=== PATIENT | female | born 1945 | race Caucasian/White ===

== ENCOUNTER 2018-03-24 13:38 | Emergency (ER) | payer MEDICARE ==
[~2018-03-24] VITALS: Ht 162.6 cm; Wt 85.5 kg
[~2018-03-24 13:38] MED LIST: AMLO10TA2 PO; ASCO10004 PO; ASPI-496 PO; BUSP10TA PO; CALC1CAP7 PO; CALC500T10 PO; DULO30CA2 PO; GARL10002 PO; LECI1200 PO; LEVO137T3 PO; LISI40TA PO; MAGN250T8 PO; METF1000 PO; METO-93 PO; OMEG1CAP23 PO; OXCA300T PO; PANT40TA5 PO; POTA99TA2 PO; PRAV20TA2 PO; QUET100T PO; SPIR50TA2 PO; VITA1CAP PO; ZOLP5TAB6 PO
[2018-03-24 13:40] VITALS: BP 152/75
[2018-03-24] MEDS ORDERED: LIDOCAINE-MPF 1%, 5ML ONE (14:11)
[2018-03-24] MEDS ORDERED: DIPH,PERTUSS(ACELL),TET VAC/PF 0.5 ML IM-VACC ONE ×2 (14:11→14:30)
[2018-03-24] MEDS ORDERED: LIDOCAINE-MPF 1%, 5ML INFIL ONE (14:30)
== END 2018-03-24 14:29 | disposition home or self-care (01) ==
LOC: ED 14:15
DX: S61.213A Laceration without foreign body of left middle finger without damage to nail, initial encounter (principal); E11.9 Type 2 diabetes mellitus without complications; I10 Essential (primary) hypertension; W26.0XXA Contact with knife, initial encounter; Y93.89 Activity, other specified; Y92.009 Unspecified place in unspecified non-institutional (private) residence as the place of occurrence of the external cause; Y99.8 Other external cause status
CPT/HCPCS: 12001; 90471; 90715; 99283

== ENCOUNTER 2020-08-11 16:18 | Inpatient (IN) | payer MEDICARE ==
[~2020-08-11] VITALS: Ht 160 cm; Wt 87.7 kg
[~2020-08-11 16:18] MED LIST changes: -AMLO10TA2 PO; +AMLO10TA8 PO; +ASCO100018 PO; -ASCO10004 PO; +CEFAZOLIN 1,000 MG ONE; +DEXAMETHASONE 4 MG/ML, 1ML ONE; +GLYCOPYRROLATE 0.2MG/1ML, 5ML ONE; +NEOSTIGMINE 1 MG/ML, 10ML ONE; -OXCA300T PO; +OXCA300T19 PO; -PANT40TA5 PO; +PANT40TA6 PO; +PROPOFOL 10 MG/ML, 20ML ONE; +ROCURONIUM 10MG/ML,5ML ONE; -SPIR50TA2 PO; +SPIR50TA4 PO; +SUCCINYLCHOLINE 20 MG/ML, 10ML ONE
[2020-08-11] MEDS ORDERED: DIPH,PERTUSS(ACELL),TET VAC/PF 0.5 ML IM-VACC ONE ×2 (16:30→16:32)
[2020-08-11] MEDS ORDERED: ONDANSETRON 2MG/ML, 2ML IVPush ONE (16:30)
[2020-08-11] MEDS ORDERED: SODIUM CHLORIDE FLUSH 10ML SYR IVF ONE (16:30)
[2020-08-11] MEDS ORDERED: MORPHINE SULFATE 4 MG/ML, 1ML ONE ×2 (16:32→17:26)
[2020-08-11] MEDS ORDERED: ONDANSETRON 2MG/ML, 2ML ONE (16:32)
[2020-08-11] MEDS: MORPHINE SULFATE 4 MG/ML, 1ML IVPush PRN ×2 (16:43→17:32)
--- NOTE | 2020-08-11 16:50 | NUR ---
PT MEDICATED FOR 7/10 PAIN TO LLE, TETANUS GIVEN PER ORDER. XR COMPLETED, CALL LIGHT WITHIN REACH. ED TECHS AT BS TO PLACE SPLINT, DRESSING APPLIED TO WOUND.
[2020-08-11] MEDS ORDERED: CEFAZOLIN PMX 1GM/50ML 50 ML IV ONE (17:00)
[2020-08-11 17:13] LABS: BASOPHILS # (AUTO) 0.01 x10^3/uL (0-0.1); BASOPHILS % (AUTO) 0 % (0-1); EOSINOPHILS # (AUTO) 0.09 x10^3/uL (0-0.4); EOSINOPHILS % (AUTO) 1 % (1-7); LYMPHOCYTES # (AUTO) 0.91 x10^3/uL (1-3.4); LYMPHOCYTES % (AUTO) 10 % (22-44); MD NO; MEAN CORPUSCULAR HGB CONC 32.6 g/dL (32.4-35.8); MEAN PLATELET VOLUME 9.3 fL (7.4-10.4); MONOCYTES # (AUTO) 0.42 x10^3/uL (0.2-0.8); MONOCYTES % (AUTO) 5 % (2-9); NEUTROPHILS # (AUTO) 7.57 x10^3/uL (1.8-6.8); NEUTROPHILS % (AUTO) 84 % (42-75); PLATELET COUNT 177 x10^3/uL (130-400); RED BLOOD COUNT 4.65 x10^6/uL (3.82-5.3); RED CELL DISTRIBUTION WIDTH 14.3 % (9.6-15.2)
[2020-08-11 17:26] LABS: ALBUMIN 3.6 g/dL (3.4-5.0); ANION GAP 7 mmol/L (5-15); CALCIUM 8.9 mg/dL (8.5-10.1); CHLORIDE 107 mmol/L (98-107); CREATININE 1.19 mg/dL (0.55-1.02)
[2020-08-11] MEDS ORDERED: CEFAZOLIN PMX 1GM/50ML 50 ML ONE (17:26)
[2020-08-11] MEDS ORDERED: MORPHINE SULFATE 4 MG/ML, 1ML IVPush PRN ×2 (17:30→19:00)
[2020-08-11] MEDS ORDERED: ONDANSETRON 2MG/ML, 2ML IVPush PRN (17:30)
--- NOTE | 2020-08-11 18:14 | NUR ---
ATTEMPT TO CALL REPORT, PER BINGO FLOATER, RN WILL CALL BACK WHEN AVAILABLE.
[2020-08-11] MEDS ORDERED: LABETALOL 5MG/ML, 20ML IV PRN (18:30)
[2020-08-11] MEDS ORDERED: HALOPERIDOL 5 MG/ML IV PRN (18:30)
[2020-08-11] MEDS ORDERED: MEPERIDINE/PF 25MG/0.5ML IVPush PRN (18:30)
[2020-08-11] MEDS ORDERED: OXYcodone 5 MG/5 ML ORAL.SOL UDC PO PRN (18:30)
[2020-08-11] MEDS ORDERED: PROMETHAZINE 25 MG/ML, 1ML IVPush PRN (18:30)
[2020-08-11] MEDS ORDERED: hydrALAzine 20 MG/ML, 1ML IV PRN (18:30)
[2020-08-11] MEDS ORDERED: DIPHENHYDRAMINE 50 MG/ML, 1ML IVPush PRN (18:30)
--- NOTE | 2020-08-11 18:30 | NUR ---
REPORT TO ISMAEL SELBY, OR TRANSPORT HERE.
[2020-08-11] MEDS ORDERED: FENTANYL PF 250 MCG/5ML ONE (18:58)
[2020-08-11] MEDS ORDERED: DEXTROSE 4 GM TAB.CHEW PO PRN (19:00)
[2020-08-11] MEDS ORDERED: DEXTROSE 50%, 50ML SYRINGE IVPush PRN (19:00)
[2020-08-11] MEDS ORDERED: TRAZODONE 50MG TABLET PO PRN (19:00)
[2020-08-11] MEDS ORDERED: LABETALOL 5MG/ML, 20ML IVPush PRN (19:00)
[2020-08-11] MEDS ORDERED: SODIUM CHLORIDE FLUSH 10ML SYR IVF PRN (19:00)
[2020-08-11] MEDS ORDERED: GLUCAGON 1 MG IM PRN (19:00)
[2020-08-11] MEDS ORDERED: ACETAMINOPHEN 325 MG TABLET PO PRN (19:00)
[2020-08-11] MEDS ORDERED: DULOXETINE 30 MG CAPSULE.DR PO SCH (21:00)
[2020-08-11] MEDS ORDERED: OXYcodone 5 MG/5 ML ORAL.SOL UDC ONE (22:03)
[2020-08-11] MEDS ORDERED: FENTANYL PF 100 MCG/2ML ONE (22:03)
[2020-08-11] MEDS: FENTANYL PF 100 MCG/2ML IV PRN ×2 (22:05→22:14)
[2020-08-11] MEDS ORDERED: HYDROmorphone 1 MG/ML, 1ML INJ ONE (22:20)
[2020-08-11] MEDS: HYDROmorphone 1 MG/ML, 1ML INJ IVPush PRN ×2 (22:22→22:28)
[2020-08-11 23:00] VITALS: BP 118/76
[2020-08-12 00:01] VITALS: BP 136/77
[2020-08-12] MEDS: SODIUM CHLORIDE FLUSH 10ML SYR IVF SCH ×3 (00:10→22:38)
[2020-08-12] MEDS: LACTATED RINGERS 1,000 ML IV SCH ×2 (00:11→11:08)
[2020-08-12] MEDS: PRAVASTATIN 20 MG TABLET PO SCH ×2 (00:12→22:38)
[2020-08-12] MEDS: INSULIN LISPRO 100 UNITS/ML, PEN SQ-INSULIN SCH ×5 (00:37→22:36)
[2020-08-12] MEDS: CEFAZOLIN PMX 1GM/50ML 50 ML IVPB SCH ×2 (03:22→11:08)
[2020-08-12] MEDS: HYDROcodone/APAP 5/325 TABLET PO PRN ×5 (03:27→17:03)
[2020-08-12 04:14] VITALS: BP 135/82
[2020-08-12 05:58] LABS: MEAN CORPUSCULAR HEMOGLOBIN 28.8 pg (27.0-34.8); MEAN CORPUSCULAR HGB CONC 32.4 g/dL (32.4-35.8); MEAN PLATELET VOLUME 9.9 fL (7.4-10.4); PLATELET COUNT 153 x10^3/uL (130-400); RED BLOOD COUNT 3.78 x10^6/uL (3.82-5.3); RED CELL DISTRIBUTION WIDTH 14.2 % (9.6-15.2)
[2020-08-12] MEDS: ENOXAPARIN 40 MG/0.4 ML SQ SCH (06:00)
[2020-08-12 06:07] LABS: CHLORIDE 105 mmol/L (98-107)
[2020-08-12 06:13] LABS: ANION GAP 8 mmol/L (5-15); CALCIUM 8.7 mg/dL (8.5-10.1); CREATININE 1.31 mg/dL (0.55-1.02)
[2020-08-12 06:55] LABS: BASOPHILS % (AUTO) 0 % (0-1); EOSINOPHILS % (AUTO) 0 % (1-7); LYMPHOCYTES # (AUTO) 0.45 x10^3/uL (1-3.4); LYMPHOCYTES % (AUTO) 6 % (22-44); MD NO; MONOCYTES # (AUTO) 0.52 x10^3/uL (0.2-0.8); MONOCYTES % (AUTO) 6 % (2-9); NEUTROPHILS # (AUTO) 7.15 x10^3/uL (1.8-6.8); NEUTROPHILS % (AUTO) 88 % (42-75)
[2020-08-12] MEDS: AMLODIPINE 10 MG TAB PO SCH (08:00)
[2020-08-12] MEDS: DULOXETINE 30 MG CAPSULE.DR PO SCH (08:00)
[2020-08-12] MEDS: LURASIDONE 20 MG TABLET PO SCH (08:01)
[2020-08-12] MEDS: LEVOTHYROXINE 125 MCG TABLET PO SCH (08:01)
[2020-08-12] MEDS: METOPROLOL SUCCINATE 100 MG TAB.ER.24H PO SCH ×2 (08:02→08:08)
[2020-08-12 08:14] VITALS: BP 106/69
[2020-08-12 13:39] VITALS: BP 119/71
[2020-08-12] MEDS ORDERED: LURA60TA PO (15:42)
[2020-08-12] MEDS ORDERED: TRAZ150T62 PO (15:42)
[2020-08-12 20:00] VITALS: BP 134/73
[2020-08-13 02:00] VITALS: BP 119/74
[2020-08-13 05:52] LABS: BASOPHILS # (AUTO) 0.03 x10^3/uL (0-0.1); BASOPHILS % (AUTO) 0 % (0-1); EOSINOPHILS # (AUTO) 0.04 x10^3/uL (0-0.4); EOSINOPHILS % (AUTO) 1 % (1-7); LYMPHOCYTES # (AUTO) 0.87 x10^3/uL (1-3.4); LYMPHOCYTES % (AUTO) 11 % (22-44); MD NO; MEAN CORPUSCULAR HGB CONC 32.6 g/dL (32.4-35.8); MEAN PLATELET VOLUME 9.6 fL (7.4-10.4); MONOCYTES # (AUTO) 0.65 x10^3/uL (0.2-0.8); MONOCYTES % (AUTO) 8 % (2-9); NEUTROPHILS # (AUTO) 6.44 x10^3/uL (1.8-6.8); NEUTROPHILS % (AUTO) 80 % (42-75); PLATELET COUNT 135 x10^3/uL (130-400); RED CELL DISTRIBUTION WIDTH 14.5 % (9.6-15.2)
[2020-08-13 05:54] LABS: CHLORIDE 107 mmol/L (98-107)
[2020-08-13 06:02] LABS: ANION GAP 7 mmol/L (5-15); CREATININE 1.08 mg/dL (0.55-1.02)
[2020-08-13] MEDS: OMEPRAZOLE 20 MG CAPSULE.DR PO SCH (06:50)
[2020-08-13] MEDS: ENOXAPARIN 40 MG/0.4 ML SQ SCH (06:50)
[2020-08-13] MEDS: INSULIN LISPRO 100 UNITS/ML, PEN SQ-INSULIN SCH ×4 (06:56→22:33)
[2020-08-13 08:11] VITALS: BP 134/75
[2020-08-13] MEDS: AMLODIPINE 10 MG TAB PO SCH (08:28)
[2020-08-13] MEDS: METOPROLOL SUCCINATE 100 MG TAB.ER.24H PO SCH (08:28)
[2020-08-13] MEDS: SODIUM CHLORIDE FLUSH 10ML SYR IVF SCH ×2 (08:29→22:26)
[2020-08-13] MEDS: DULOXETINE 30 MG CAPSULE.DR PO SCH (08:29)
[2020-08-13] MEDS: LURASIDONE 20 MG TABLET PO SCH (08:29)
[2020-08-13] MEDS: LEVOTHYROXINE 125 MCG TABLET PO SCH (08:29)
[2020-08-13] MEDS: HYDROcodone/APAP 5/325 TABLET PO PRN ×3 (08:41→22:25)
[2020-08-13 13:27] VITALS: BP 123/76
[2020-08-13 21:45] VITALS: BP 132/79
[2020-08-13] MEDS: PRAVASTATIN 20 MG TABLET PO SCH (22:25)
[2020-08-14 03:38] VITALS: BP 131/76
[2020-08-14] MEDS: OMEPRAZOLE 20 MG CAPSULE.DR PO SCH (05:29)
[2020-08-14] MEDS: HYDROcodone/APAP 5/325 TABLET PO PRN ×3 (05:30→22:49)
[2020-08-14] MEDS ORDERED: POTASSIUM CHLORIDE 20 MEQ TAB.ER.PRT PO ONE ×2 (05:30→07:00)
[2020-08-14] MEDS: ENOXAPARIN 40 MG/0.4 ML SQ SCH (05:31)
[2020-08-14] MEDS: INSULIN LISPRO 100 UNITS/ML, PEN SQ-INSULIN SCH ×4 (06:30→20:08)
[2020-08-14 07:01] LABS: BASOPHILS # (AUTO) 0.03 x10^3/uL (0-0.1); BASOPHILS % (AUTO) 1 % (0-1); EOSINOPHILS # (AUTO) 0.06 x10^3/uL (0-0.4); EOSINOPHILS % (AUTO) 1 % (1-7); LYMPHOCYTES # (AUTO) 0.95 x10^3/uL (1-3.4); LYMPHOCYTES % (AUTO) 15 % (22-44); MD NO; MEAN CORPUSCULAR HEMOGLOBIN 29.3 pg (27.0-34.8); MEAN PLATELET VOLUME 9.6 fL (7.4-10.4); MONOCYTES # (AUTO) 0.66 x10^3/uL (0.2-0.8); MONOCYTES % (AUTO) 10 % (2-9); NEUTROPHILS # (AUTO) 4.65 x10^3/uL (1.8-6.8); NEUTROPHILS % (AUTO) 73 % (42-75); PLATELET COUNT 116 x10^3/uL (130-400); RED BLOOD COUNT 3.05 x10^6/uL (3.82-5.3); RED CELL DISTRIBUTION WIDTH 13.9 % (9.6-15.2)
[2020-08-14 07:49] VITALS: BP 133/76
[2020-08-14] MEDS: LURASIDONE 20 MG TABLET PO SCH (08:21)
[2020-08-14] MEDS: AMLODIPINE 10 MG TAB PO SCH (08:21)
[2020-08-14] MEDS: LEVOTHYROXINE 125 MCG TABLET PO SCH (08:21)
[2020-08-14] MEDS: METOPROLOL SUCCINATE 100 MG TAB.ER.24H PO SCH (08:22)
[2020-08-14] MEDS: DULOXETINE 30 MG CAPSULE.DR PO SCH (08:22)
[2020-08-14] MEDS: SODIUM CHLORIDE FLUSH 10ML SYR IVF SCH ×2 (08:23→20:25)
[2020-08-14] MEDS ORDERED: BISACODYL 10 MG SUPP PR PRN (12:00)
[2020-08-14] MEDS: SENNOSIDES 8.6 MG TABLET PO PRN (12:36)
[2020-08-14] MEDS: POLYETHYLENE GLYCOL 17 GM PACKET PO PRN (12:36)
[2020-08-14 13:47] VITALS: BP 126/78
[2020-08-14 19:21] VITALS: BP 132/79
[2020-08-14] MEDS: PRAVASTATIN 20 MG TABLET PO SCH (20:25)
[2020-08-15 00:56] VITALS: BP 128/78
[2020-08-15 04:48] LABS: BASOPHILS # (AUTO) 0.03 x10^3/uL (0-0.1); BASOPHILS % (AUTO) 1 % (0-1); EOSINOPHILS # (AUTO) 0.13 x10^3/uL (0-0.4); EOSINOPHILS % (AUTO) 3 % (1-7); LYMPHOCYTES # (AUTO) 0.99 x10^3/uL (1-3.4); LYMPHOCYTES % (AUTO) 19 % (22-44); MD NO; MEAN CORPUSCULAR HEMOGLOBIN 29.5 pg (27.0-34.8); MEAN CORPUSCULAR HGB CONC 33.5 g/dL (32.4-35.8); MEAN PLATELET VOLUME 9.9 fL (7.4-10.4); MONOCYTES # (AUTO) 0.55 x10^3/uL (0.2-0.8); MONOCYTES % (AUTO) 11 % (2-9); NEUTROPHILS # (AUTO) 3.54 x10^3/uL (1.8-6.8); NEUTROPHILS % (AUTO) 68 % (42-75); PLATELET COUNT 135 x10^3/uL (130-400); RED BLOOD COUNT 2.94 x10^6/uL (3.82-5.3)
[2020-08-15 05:01] LABS: ANION GAP 6 mmol/L (5-15); CALCIUM 8.4 mg/dL (8.5-10.1); CHLORIDE 108 mmol/L (98-107); CREATININE 0.76 mg/dL (0.55-1.02)
[2020-08-15] MEDS: OMEPRAZOLE 20 MG CAPSULE.DR PO SCH (05:20)
[2020-08-15] MEDS: ENOXAPARIN 40 MG/0.4 ML SQ SCH (05:21)
[2020-08-15] MEDS: INSULIN LISPRO 100 UNITS/ML, PEN SQ-INSULIN SCH ×3 (06:58→16:30)
[2020-08-15] MEDS: LURASIDONE 20 MG TABLET PO SCH (07:55)
[2020-08-15] MEDS: DULOXETINE 30 MG CAPSULE.DR PO SCH (07:56)
[2020-08-15] MEDS: SENNOSIDES 8.6 MG TABLET PO PRN (07:56)
[2020-08-15] MEDS: METOPROLOL SUCCINATE 100 MG TAB.ER.24H PO SCH (07:56)
[2020-08-15] MEDS: LEVOTHYROXINE 125 MCG TABLET PO SCH (07:56)
[2020-08-15] MEDS: POLYETHYLENE GLYCOL 17 GM PACKET PO PRN (07:56)
[2020-08-15] MEDS: AMLODIPINE 10 MG TAB PO SCH (07:56)
[2020-08-15] MEDS: SODIUM CHLORIDE FLUSH 10ML SYR IVF SCH (07:58)
[2020-08-15 08:01] VITALS: BP 144/78
[2020-08-15 13:36] VITALS: BP 129/77
[2020-08-15] MEDS ORDERED: HYDR-3237 PO (13:36)
[2020-08-15] MEDS ORDERED: OMEP-110 PO (13:36)
[2020-08-15] MEDS ORDERED: POLY17PO5 PO (15:35)
[2020-08-15] MEDS ORDERED: FERR324T5 PO (15:36)
[2020-08-15 15:54] VITALS: BP 139/68
[2020-08-15] MEDS: HYDROcodone/APAP 5/325 TABLET PO PRN (16:27)
== END 2020-08-15 16:47 | DRG 493 ==
LOC: OR 17:27 → EDIP 17:28 → OR 17:51 → 4NE 22:44
PROVIDERS: ADMIT Family Medicine; ATTEND Family Medicine
PROC: 0QSK04Z Reposition Left Fibula with Internal Fixation Device, Open Approach (ICD-10-PCS; 2020-08-11)
PROC: 0QSH04Z Reposition Left Tibia with Internal Fixation Device, Open Approach (ICD-10-PCS; 2020-08-11)
PROC: 0QSH06Z Reposition Left Tibia with Intramedullary Internal Fixation Device, Open Approach (ICD-10-PCS; principal; 2020-08-11 18:30)
DX: S82.62XA Displaced fracture of lateral malleolus of left fibula, initial encounter for closed fracture (principal); N17.9 Acute kidney failure, unspecified; S82.222A Displaced transverse fracture of shaft of left tibia, initial encounter for closed fracture; S82.422A Displaced transverse fracture of shaft of left fibula, initial encounter for closed fracture; D64.9 Anemia, unspecified; E03.9 Hypothyroidism, unspecified; E11.22 Type 2 diabetes mellitus with diabetic chronic kidney disease; F32.9 Major depressive disorder, single episode, unspecified; F20.9 Schizophrenia, unspecified; F41.9 Anxiety disorder, unspecified; I12.9 Hypertensive chronic kidney disease with stage 1 through stage 4 chronic kidney disease, or unspecified chronic kidney disease; K21.9 Gastro-esophageal reflux disease without esophagitis; N18.9 Chronic kidney disease, unspecified; W01.0XXA Fall on same level from slipping, tripping and stumbling without subsequent striking against object, initial encounter; Z20.828 Contact with and (suspected) exposure to other viral communicable diseases; X50.1XXA Overexertion from prolonged static or awkward postures, initial encounter; Y92.009 Unspecified place in unspecified non-institutional (private) residence as the place of occurrence of the external cause; Z79.899 Other long term (current) drug therapy; Z87.891 Personal history of nicotine dependence; Z90.710 Acquired absence of both cervix and uterus; Z88.5 Allergy status to narcotic agent; Z79.891 Long term (current) use of opiate analgesic; Z79.01 Long term (current) use of anticoagulants; Z79.84 Long term (current) use of oral hypoglycemic drugs; Z79.82 Long term (current) use of aspirin
CPT/HCPCS: 36415; 71045; 76000; 80048; 82040; 82962; 83036; 85025; 87635; 90715; 93005; 99285; C1713; G0378; J0690; J1100; J1170; J1650; J2405; J2704; J2710; J3010; J0330; J1815; J2270; J7120